=== PATIENT | female | born 1950 | race Caucasian/White ===

== ENCOUNTER 2016-08-24 13:39 | Emergency (ER) | payer OTHER ==
[~2016-08-24] VITALS: Ht 160 cm; Wt 77.1 kg
[~2016-08-24 13:39] MED LIST: ALBU0.0912 IH; CITA40TA13 PO; FENO145T PO; GABA300C PO; IBUP-974 PO; METH4TAB1 PO; METH500T14 PO; Metoprolol Tartrate PO; OMEP40EC1 PO; PRON INH; TRAM50TA94 PO; ZOLP10TA1 PO; [UNRECOGNIZED DRUG - CODE] PO
[2016-08-24 14:02] VITALS: BP 141/83
--- NOTE | 2016-08-24 15:12 | NUR ---
PATIENT TO ER BED 6.
[2016-08-24] MEDS ORDERED: ALBUTEROL 0.083% 2.5 MG/3 ML NEBU INH ONE (15:20)
[2016-08-24] MEDS ORDERED: IPRATROPIUM 0.02% 0.5 MG/2.5 ML NEBU INH ONE (15:20)
[2016-08-24] MEDS ORDERED: methylPREDNISolone SS 125 MG in WATER STERILE 2 ML IM ONE (15:20)
--- NOTE | 2016-08-24 15:20 | NUR ---
65/M TO ED WITH C/O COUGH, SORE THROAT, AND FEVER X1 WEEK. PAIN FROM COUGH 6/10. LUNGS CLEAR BILAT. HR EVEN AND REGULAR. AAOX4. VSS. NO SIGNS OF DISTRESS.
[2016-08-24 16:18] VITALS: BP 141/83
--- NOTE | 2016-08-24 16:18 | NUR ---
Patient discharged with v/s stable. Written and verbal after care instructions given and explained. Patient alert, oriented and verbalized understanding of instructions. Ambulatory with steady gait. All questions addressed prior to discharge. ID band removed. Patient advised to follow up with PMD. Rx of ALBUTEROL, PREDNISONE, ZITHROMAX given. Patient educated on indication of medication including possible reaction and side effects. Opportunity to ask questions provided and answered.
== END 2016-08-24 16:18 | disposition home or self-care (01) ==
LOC: MED 13:39
DX: J06.9 Acute upper respiratory infection, unspecified (principal); J45.909 Unspecified asthma, uncomplicated; E11.9 Type 2 diabetes mellitus without complications; I10 Essential (primary) hypertension; Z79.899 Other long term (current) drug therapy
CPT/HCPCS: 71010; 94640; 96372; 99283; J2930; J7613; J7644

== ENCOUNTER 2016-09-12 12:17 | Emergency (ER) | payer OTHER ==
[~2016-09-12] VITALS: Ht 157.5 cm; Wt 85.4 kg
[2016-09-12 12:28] VITALS: BP 109/76
--- NOTE | 2016-09-12 15:48 | NUR ---
PT AMBULATED TO BED 3 AT THIS TIME.
--- NOTE | 2016-09-12 15:50 | NUR ---
65F BIB SELF C/O LEFT LEG PAIN, THROBBING/ITCHY, NON-RADIATING, 5/10 X 1 WEEK; PT STATES " I JUST WOKE UP AND IT WAS LIKE THIS"; DENIES FALL, TRAUMA OR INJURY TO SITE AT THIS TIME; LEFT CAP REFILL < 3 SECONDS, LEFT PEDAL PULSE PALPABLE, NO LOSS OF SENSATION TO LEFT LEG AT THIS TIME; SWELLING NOTED TO LEFT LEG; PT A&OX4, BL LUNG SOUNDS CLEAR RR EVEN/UNLABORED, SKIN IS WARM/DRY/INTACT AT THIS TIME; PT DENIES N/V/D AT THIS TIME; PT RESTIN IN BED W/ HOB ELEVATED AND IN LOWEST POSITION; POSITIONED FOR COMFORT; ER MD MADE AWARE OF STATUS. WILL CONTINUE TO MONITOR. Addendum: 09/12/16 at 1603 by [employer] PT STATES BIB .
--- NOTE | 2016-09-12 15:54 | NUR ---
ER MD DR. ZARCO EVALUATING PT AT BEDSIDE.
[2016-09-12] MEDS ORDERED: fentaNYL 0.05 MG/ML VIAL IM ONE (16:00)
--- NOTE | 2016-09-12 16:13 | NUR ---
PER ER MD DR. ZARCO, NO URINE DIP NEEDED ON PT; VSS AT THIS TIME; RR EVEN/UNLABORED, WILL CONTINUE TO MONITOR.
[2016-09-12 16:30] VITALS: BP 130/77
--- NOTE | 2016-09-12 16:30 | NUR ---
Patient discharged with v/s stable. Written and verbal after care instructions given and explained. Patient alert, oriented and verbalized understanding of instructions. Ambulatory with steady gait. All questions addressed prior to discharge. ID band removed. Patient advised to follow up with PMD. Rx of ROBAXIN 500MG & NORCO 5MG-325MG TAB given. Patient educated on indication of medication including possible reaction and side effects. Opportunity to ask questions provided and answered.
== END 2016-09-12 16:30 | disposition home or self-care (01) ==
LOC: MED 12:17
DX: M54.42 Lumbago with sciatica, left side (principal); I10 Essential (primary) hypertension; E11.9 Type 2 diabetes mellitus without complications
CPT/HCPCS: 72100; 81002; 96372; 99284; J3010